=== PATIENT | male | born 2000 ===

== ENCOUNTER 2021-08-10 06:57 | Emergency (ER) | payer OTHER ==
[~2021-08-10] VITALS: Ht 172.7 cm; Wt 65.8 kg
[2021-08-10] MEDS ORDERED: IOHEXOL 300 MG/ML 100ML BOTTLE IJ ONE (07:43)
[2021-08-10] MEDS ORDERED: MORPHINE SULFATE 4 MG/ML SYR/VIAL IV ONE (08:45)
[2021-08-10] MEDS ORDERED: SODIUM CHLORIDE 0.9% 1,000 ML IV ONE (08:45)
[2021-08-10] MEDS ORDERED: SODIUM CHLORIDE 0.9% 500 ML IVB ONE (08:45)
[2021-08-10] MEDS: PROMETHAZINE HCL 25 MG/ML 1ML IV PRN ×3 (09:00→18:00)
[2021-08-10 11:04] LABS: Albumin 4.5 g/dL (3.4-5.0); Calcium 8.6 mg/dL (8.5-10.1)
[2021-08-10 11:05] LABS: INR 1.14 (0.9-1.15); Partial Thromboplastin Time 21.9 sec (23.6-33.0)
[2021-08-10 11:07] LABS: Basophils # (auto) 0 10 ^3/uL (0-0.2); Basophils % (auto) 0.3 % (0.0-2.0); Eosinophils # (auto) 0 10 ^3/uL (0-0.8); Hematocrit 46.8 % (41.0-53.0); Hemoglobin 15.1 g/dL (13.5-17.5); Lymphocytes # (auto) 0.9 10 ^3/uL (0.4-5.4); Mean Corpuscular Hgb Conc. 32.2 g/dL (32.0-36.0); Monocytes # (auto) 1.1 10 ^3/uL (0-1.3); Monocytes % (auto) 7.7 % (0.0-12.0); Neutrophils # (auto) 12.7 10 ^3/uL (1.6-8.6); Red Blood Cells 5.38 10^6/uL (4.5-5.90); White Blood Cell 14.8 10^3/uL (4.4-10.8)
[2021-08-10 11:08] LABS: BUN/Creatinine Ratio 12.5; Total Protein 7.4 g/dL (6.4-8.2)
[2021-08-10 11:44] LABS: Magnesium 2.2 mg/dL (1.6-2.6)
[2021-08-10 12:27] LABS: Urine Bacteria NONE SEEN /hpf (None Seen); Urine Blood 3+ /uL (Negative); Urine Mucus FEW (None Seen); Urine WBC 1 /hpf (0 - 3)
[2021-08-10 12:28] LABS: Urine Specific Gravity 1.035 (1.001-1.035)
[2021-08-10] MEDS ORDERED: MORPHINE SULFATE INJECTION 2 MG/ML SYRG ONE (17:55)
[2021-08-10] MEDS ORDERED: MORPHINE SULFATE INJECTION 2 MG/ML SYRG IV ONE (18:00)
[2021-08-10 18:04] VITALS: BP 132/68
== END 2021-08-10 18:06 | disposition short-term general hospital (02) ==
LOC: EDBD 06:57 → ER 06:57
DX: S80.02XA Contusion of left knee, initial encounter (principal); S61.213A Laceration without foreign body of left middle finger without damage to nail, initial encounter; S39.91XA Unspecified injury of abdomen, initial encounter; S29.8XXA Other specified injuries of thorax, initial encounter; J93.83 Other pneumothorax; R51.9 Headache, unspecified; V43.52XA Car driver injured in collision with other type car in traffic accident, initial encounter; Y93.89 Activity, other specified; Y92.410 Unspecified street and highway as the place of occurrence of the external cause; Y99.8 Other external cause status
CPT/HCPCS: 36415; 71250; 72125; 74177; 80053; 81001; 83690; 83735; 85025; 85610; 85730; 96361; 96374; 96375; 96376; 99285; J2270; J2550; J7030; Q9967